=== PATIENT | male | born 1985 | race Caucasian/White ===

== ENCOUNTER 2017-09-10 11:30 | Outpatient (RCR) | payer SELFPAY ==
--- NOTE | 2017-10-25 11:51 | HP.PT.NRP ---
HP - Discharge Summary (1) - Patient Information ORLIN ARGUETA was seen in my office for initial evaluation on . The following Plan of Care was established for this patient: This patient was last seen in our office . Pertinent comments regarding their Physical therapy will appear below: Patient is currently PRN dry needling patient- a new chart will be opened if he returns to PT. At this point I will be discontinuing this patient from physical therapy. I would be happy to see this patient again in the future if found appropriate by the physician. Thank you! Eri Greco
== END 2017-09-10 19:00 | disposition home or self-care (01) ==
LOC: PT 11:30
PROVIDERS: Family Provider Family Medicine; PCP Family Medicine
DX: M89.8X1 Other specified disorders of bone, shoulder (principal)

== ENCOUNTER 2017-12-20 10:31 | Outpatient (RCR) | payer SELFPAY ==
--- NOTE | 2018-05-21 14:56 | HP.PT.NRP ---
HP - Discharge Summary (1) - Patient Information ORLIN ARGUETA was seen in my office for initial evaluation on . The following Plan of Care was established for this patient: This patient was last seen in our office . Pertinent comments regarding their Physical therapy will appear below: Dry Needling- dc At this point I will be discontinuing this patient from physical therapy. I would be happy to see this patient again in the future if found appropriate by the physician. Thank you! ANANTH ConnollyT
== END 2017-12-20 19:00 | disposition home or self-care (01) ==
LOC: PT 10:31
PROVIDERS: Family Provider Family Medicine; PCP Family Medicine
DX: R69 Illness, unspecified (principal)